=== PATIENT | male | born 1970 | race African-American/Black ===

== ENCOUNTER 2019-11-12 19:46 | Observation (INO) ==
[2019-11-12] MEDS ORDERED: hydrALAZINE 20 MG/1 ML VIAL IV PRN (21:45)
[2019-11-12] MEDS ORDERED: ALBUTEROL 2.5 MG/3 ML NEB RESP TX PRN (21:45)
[2019-11-12] MEDS ORDERED: MORPHINE 4 MG/1 ML VIAL IV PRN (21:47)
[2019-11-12] MEDS ORDERED: ONDANSETRON 4 MG/2 ML VIAL IV PRN (21:47)
[2019-11-12] MEDS ORDERED: PROMETHAZINE 25 MG/1 ML VIAL IM PRN (21:47)
[2019-11-12] MEDS ORDERED: ZALEPLON 5 MG CAPSULE PO PRN (21:47)
[2019-11-12] MEDS ORDERED: NICOTINE 21 MG/24 HR PATCH TRANSDERM PRN (21:47)
[2019-11-12] MEDS ORDERED: ACETAMINOPHEN 325 MG TABLET PO PRN (21:47)
[2019-11-12] MEDS ORDERED: diphenhydrAMINE CAP 25 MG CAPSULE PO PRN (21:47)
[2019-11-12] MEDS ORDERED: guaiFENesin/DM ER 600-30 MG TABLET PO PRN (21:47)
[2019-11-12] MEDS ORDERED: DOCUSATE SODIUM 100 MG CAPSULE PO PRN (21:47)
[2019-11-12 22:15] LABS: ABG Base Excess 1.3 MMOL/L (-2.5-2.5); ABG HCO3 25.6 MMOL/L (20-26); ABG Oxygen Saturation 97.1 % (95-100); ABG PCO2 38.7 MM HG (35-48); ABG PH 7.428 (7.35-7.45); ABG PO2 90.6 MM HG (80-95); ABG TCO2 21.9 MMOL/L (23-27); Allen Test Positive
[2019-11-12 22:19] LABS: Basophils # 0.1 10*3/uL (0.0-0.2); Basophils % 0.9 % (0.0-0.8); Eosinophils # 0.1 10*3/uL (0.0-0.87); Eosinophils % 1.5 % (0.00-10.9); Hematocrit 42.3 VOL% (42.0-52.0); Hemoglobin 13.6 GM/DL (14.0-18.0); Immature Granulocytes % 0.2 %; Immature Granulocytes Absolute 0.01 #; Lymphocytes # 1.7 10*3/uL (1.4-4.0); Lymphocytes % 30.7 % (21.2-54.2); Mean Corpuscular HGB Conc 32.2 GM/DL (32-36); Mean Corpuscular Volume 87.2 FL (87-102); Mean Platelet Volume 10.6 FL (9.6-12.0); Monocytes % 9.7 % (1.7-12.7); Platelet Count 219 T/CUMM (130-400); Red Blood Count 4.85 MC/CUMM (3.8-5.5); Red Cell Distribution Width 14.9 % (9.3-17.3); White Blood Count 5.4 T/CUMM (4-12)
[2019-11-12 22:27] LABS: PT Patient Result 11.3 SECS (9.6-12.2); Partial Thromboplastin Time 38.3 SECS (20.8-36.0)
[2019-11-13] MEDS ORDERED: amLODIPine 10 MG TABLET PO ONE (00:05)
[2019-11-13 05:54] LABS: Eosinophils # 0.2 10*3/uL (0.0-0.87); Eosinophils % 3.6 % (0.00-10.9); Hematocrit 42.9 VOL% (42.0-52.0); Hemoglobin 13.9 GM/DL (14.0-18.0); Immature Granulocytes % 0.2 %; Immature Granulocytes Absolute 0.01 #; Lymphocytes # 1.4 10*3/uL (1.4-4.0); Lymphocytes % 32.5 % (21.2-54.2); Mean Corpuscular HGB Conc 32.4 GM/DL (32-36); Mean Platelet Volume 10.8 FL (9.6-12.0); Neutrophils % 48.7 % (38.7-73.9); Platelet Count 204 T/CUMM (130-400); Red Blood Count 4.93 MC/CUMM (3.8-5.5); Red Cell Distribution Width 14.6 % (9.3-17.3); White Blood Count 4.2 T/CUMM (4-12)
[2019-11-13 06:04] LABS: Calcium 8.9 MG/DL (8.5-10.1); Osmolality,Calculated 271.8 MOS/KG (273-304)
[2019-11-13 06:10] LABS: Risk Ratio 2.36; VLDL CHOLESTEROL 22.6 MG/DL
[2019-11-13] MEDS ORDERED: ENOXAPARIN 100 MG/ML SYRINGE SUBCUT SCH (08:00)
[2019-11-13] MEDS: PANTOPRAZOLE 40 MG TABLET PO SCH (08:36)
[2019-11-13] MEDS: APIXABAN 5 MG TABLET PO SCH ×2 (08:36→21:11)
[2019-11-13] MEDS: amLODIPine 10 MG TABLET PO SCH (08:36)
[2019-11-13] MEDS ORDERED: MAGNESIUM HYDROXIDE SUSP 30 ML UDCUP PO PRN (15:57)
[2019-11-13] MEDS: LACTULOSE 20 GM/30 ML UDCUP PO PRN (16:57)
[2019-11-13] MEDS ORDERED: ATORVASTATIN 20 MG TABLET PO SCH (21:00)
[2019-11-14] MEDS: LACTULOSE 20 GM/30 ML UDCUP PO PRN (08:07)
[2019-11-14] MEDS: APIXABAN 5 MG TABLET PO SCH (08:07)
[2019-11-14] MEDS: amLODIPine 10 MG TABLET PO SCH (08:07)
[2019-11-14] MEDS: PANTOPRAZOLE 40 MG TABLET PO SCH (08:08)
[2019-11-14 12:14] VITALS: BP 124/79
== END 2019-11-14 13:39 | disposition home or self-care (01) ==
LOC: N.TELEN 21:09 → INTOOBSV 21:09
PROVIDERS: ADMIT Family Medicine; ATTEND Internal Medicine